=== PATIENT | female | born 1945 | race Caucasian/White ===

== ENCOUNTER → 2017-01-03 | Outpatient (CLI) | payer MEDICARE, BC ==
[~2017-01-03] MED LIST: ALPRAZOLAM0.25 MG PO; AMLOPIDINE PO; AMOXICILLIN 50500 MG PO; ATENOLOL50 MG PO; BETAPACE 80MG80 MG PO; BIAXIN PO; CALCIUM 600-D 61 TAB PO; CALCIUM200 MG PO; CALCIUM600 M2 PO; CARAFATE 1GM1 G PO; CARDIZEM120 MG PO; CEFTIN500 MG PO; CENTRUM SILVER1 TA1 PO; CEPHALEXIN500 M1 PO; CORDARONE200 MG/TAB PO; COUMADIN 22.5 MG/TAB PO; COUMADIN 5MG5 MG/TAB PO; COZAAR 25MG25 MG/TAB PO; DOXYCYCLINE 10100 MG PO; FISH OIL CONC1000 MG PO; LOVENOX; LOVENOX 100100 MG/ML SQ; MAGNESIUM100 MG PO; METOPROLOL SUCC50 M2 PO; METOPROLOL25 MG PO; METOPROLOL50 MG PO; MULTAQ PO; MULTIPLE VITAMI1 CAP PO; NORVASC 5MG5 MG/TAB PO; OMEGA PO; OMEGA-3 FISH1000 MG PO; PACERONE200 MG PO; PREVACID 30MG30 MG PO; PRILOSEC 20MG20 MG PO; PROBIOTIC PO; RHYTHMOL PO; SYNTHROID0.05 MG/TA PO; TIKOSYN0.25 MG PO; TIROSINT50 MCG PO; TOPROL XL50 MG PO; VITAMIN C500 MG PO; XANAX .25M0.25 MG/TA PO; [UNRECOGNIZED DRUG - OTHER] PO; pain medication
== END ==
LOC: MC.RAD 12-27 08:00
DX: N63 Unspecified lump in breast (principal)

== ENCOUNTER → 2017-03-23 | Outpatient (CLI) | payer MEDICARE, BC | LOC: COL.PUL 03-16 08:00 | DX: R06.09 Other forms of dyspnea (principal); Z79.899 Other long term (current) drug therapy ==

== ENCOUNTER → 2017-04-25 | Outpatient (CLI) | payer MEDICARE, BC | LOC: MC.RAD 09:37 | DX: Z12.31 Encounter for screening mammogram for malignant neoplasm of breast (principal) ==

== ENCOUNTER 2017-05-27 12:41 | Emergency (ER) | payer MEDICARE, BC ==
[2008-08-26 18:18] VITALS: BP 142/89
[~2017-05-27] VITALS: Ht 162.6 cm; Wt 120.5 kg
[~2017-05-27 12:41] MED LIST changes: -DOXYCYCLINE 10100 MG PO
[2017-05-27 12:44] VITALS: BP 178/91; PULSE 66; TEMP 97.9
[2017-05-27] MEDS ORDERED: CEPHALEXIN500 M1 PO (13:41)
[2017-05-27] MEDS ORDERED: DOXYCYCLINE 10100 MG PO (13:41)
== END 2017-05-27 14:15 | disposition home or self-care (01) ==
LOC: COL.ER 12:41
DX: L02.416 Cutaneous abscess of left lower limb (principal); J45.909 Unspecified asthma, uncomplicated; I82.401 Acute embolism and thrombosis of unspecified deep veins of right lower extremity; I10 Essential (primary) hypertension; E78.5 Hyperlipidemia, unspecified; Z79.01 Long term (current) use of anticoagulants; Z90.710 Acquired absence of both cervix and uterus; Z90.49 Acquired absence of other specified parts of digestive tract

== ENCOUNTER 2018-04-13 19:26 | Emergency (ER) | payer MEDICARE, BC ==
[2008-08-26 18:18] VITALS: BP 142/89
[~2018-04-13] VITALS: Ht 160 cm; Wt 108.2 kg
[~2018-04-13 19:26] MED LIST changes: -COZAAR 25MG25 MG/TAB PO; +COZAAR 50MG50 MG/TAB PO; +DOXYCYCLINE 10100 MG PO; -SYNTHROID0.05 MG/TA PO; +SYNTHROID0.075 MG/T PO
[2018-04-13 19:33] VITALS: TEMP 98.3
[2018-04-13] MEDS ORDERED: LOPRESSOR 225 MG/TAB PO (20:01)
[2018-04-13] MEDS ORDERED: VISION VITAMINS1 TA1 PO (20:02)
[2018-04-13 20:22] LABS: BASO # 0.1 (0.0-0.2); BASO % 0.9 % (0.0-2.0); EOS # 0.4 (0.0-0.7); EOS % 6.5 % (0-4.0); GRAN # 2.7 (1.4-6.5); GRAN % 48.2 % (42.2-75.2); HEMATOCRIT 40.1 % (37.0-47.0); HEMOGLOBIN 13.2 g/dl (12.5-16.0); LYMPH # 1.8 (1.2-3.4); LYMPH % 33.2 % (20.0-51.0); MEAN CELL VOLUME 96 fl (80.0-100.0); MEAN CORPUSCULAR HEMOGLOBIN 32 pg (27.0-31.0); MEAN CORPUSCULAR HGB CONC 33 g/dl (33.0-37.0); MEAN PLATELET VOLUME 10.1 fl (7.4-10.4); MONO # 0.6 (0.1-0.6); PLATELET COUNT 158 K/mm3 (130-400); RED BLOOD COUNT 4.16 M/mm3 (4.10-5.30); REDCELL DISTRIBUTION WIDTH-CV 13.2 % (11.5-14.5)
[2018-04-13 20:47] LABS: INR 1.3 (0.8-3.0); PROTHROMBIN TIME 14.3 SECONDS (9.7-12.8)
[2018-04-13 21:28] VITALS: BP 113/60
[2018-04-13 23:13] VITALS: PULSE 78
== END 2018-04-13 23:14 | disposition home or self-care (01) ==
LOC: COL.ER 19:26
PROVIDERS: Emergency Medicine
DX: I80.9 Phlebitis and thrombophlebitis of unspecified site (principal); I48.91 Unspecified atrial fibrillation; Z95.0 Presence of cardiac pacemaker; Z79.01 Long term (current) use of anticoagulants

== ENCOUNTER → 2018-05-01 | Outpatient (CLI) | payer MEDICARE, BC ==
[~2018-05-01] MED LIST changes: +LOPRESSOR 225 MG/TAB PO; +VISION VITAMINS1 TA1 PO
== END ==
LOC: MC.RAD 10:40
DX: Z12.31 Encounter for screening mammogram for malignant neoplasm of breast (principal)

== ENCOUNTER → 2019-02-07 | Outpatient (CLI) | payer MEDICARE, BC | LOC: ZCOL.LAB 15:00 → COL.LAB 15:00 | DX: Z01.812 Encounter for preprocedural laboratory examination (principal); Z86.14 Personal history of Methicillin resistant Staphylococcus aureus infection ==

== ENCOUNTER 2019-04-10 14:22 | Inpatient (IN) | payer MEDICARE, BC ==
[~2019-04-10] VITALS: Ht 158.8 cm; Wt 104.2 kg
[2019-06-20] VITALS (9 sets, daily range): BP systolic 106–137; BP diastolic 48–79; PULSE 62–77; TEMP 97–98.1
--- NOTE | 2019-06-20 16:05 | NUR ---
PT TO ROOM 330 PER BED WITH REPORT FROM [facility] @ 0867. PT IS A/O X3, LUNGS CLEAR. DRESSING TO LEFT KNEE CDI WITH AQUACEL OVER INCISION. SCDS BILATERALLY. CRYOCUFF TO LEFT KNEE IV TO PUMP PER ORDERS. PT DENIES PAIN AT THIS TIME.
[2019-06-21 04:30] VITALS: BP 99/50; PULSE 71; TEMP 98
[2019-06-21 07:07] LABS: HEMOGLOBIN 10.8 g/dl (12.5-16.0)
[2019-06-21 07:08] LABS: HEMATOCRIT 33.4 % (37.0-47.0)
--- NOTE | 2019-06-21 08:00 | NUR ---
PATIENT IS A&O. VSS. RATES PAIN IN LLE AT 1-2 ON PAIN SCALE. GAVE PRN ROXICODONE, ONE TAB BEFORE AM THERAPY PER PATIENT REQUEST. LTK DRESSING IS CD&I WITH ICE PACK INPLACE. TEDS & SCD'S TO BLE. POSITIVE PEDAL PULSES TO BLE. EASON TO DD. HEAD TO TOE ASSESSMENT WNL. AM MEDS GIVEN. NO OTHER NEEDS.
--- NOTE | 2019-06-21 08:44 | NUR ---
CROWN IRONER OPERATOR student met with the patient to discuss a discharge plan. The patient lives in [place] with her , Mukesh. The patient has a walker and reports independence with ADLs. The patient's PCP is Dr. Cohen and patient receives medications from [facility] with no difficulties. The patient does not have advanced directives in the EMR but reports they are completed and designate her , Mukesh. The patient plans to return home with outpatient physical therapy at [facility]. The patient's will be providing transportation. There are no additional needs at this time.
[2019-06-21 08:47] VITALS: BP 112/56; PULSE 71; TEMP 98.5
[2019-06-21 09:39] LABS: INR 1.2 (0.8-3.0); PROTHROMBIN TIME 14.3 SECONDS (9.7-12.8)
--- NOTE | 2019-06-21 10:37 | NUR ---
Initial visit; Patient and family thanked Traffic Engineering Director for looking in on Sana and offering encouragement and prayer.
[2019-06-21 12:20] VITALS: BP 138/71; PULSE 66; TEMP 98
[2019-06-21 16:02] VITALS: BP 106/52; PULSE 64; TEMP 98.4
[2019-06-21 20:00] VITALS: BP 115/60; PULSE 67; TEMP 98
[2019-06-21 23:59] VITALS: BP 90/40; PULSE 72; TEMP 98.5
--- NOTE | 2019-06-22 02:23 | NUR ---
Patient resting well tonight. Requested one oxycodone at bedtime. This was administered and patient denies any pain. Up with assist to the bathroom. States she feels stiff after lying down for a period of time. Will continue to monitor.
[2019-06-22 04:00] VITALS: BP 107/53; PULSE 69; TEMP 98
--- NOTE | 2019-06-22 06:24 | NUR ---
Dressing changed to left knee. Moderate amount of drainage with large clot present. Bruising to middle of incision. No warmth or redness noted. Site cleansed and new aquacel applied. Will continue to monitor.
[2019-06-22 06:50] LABS: INR 1.8 (0.8-3.0); PROTHROMBIN TIME 20.8 SECONDS (9.7-12.8)
[2019-06-22 07:57] VITALS: BP 120/61; PULSE 69; TEMP 98.3
[2019-06-22] MEDS ORDERED: COUMADIN 5MG5 MG/TAB PO (08:21)
[2019-06-22] MEDS ORDERED: NORCO 325 MG-7.1 TAB PO (08:22)
[2019-06-22] MEDS ORDERED: ULTRAM 50MG TAB50 MG PO (08:23)
[2019-06-22 13:01] VITALS: BP 115/75; PULSE 104; TEMP 97.6
== END 2019-06-22 14:15 | disposition home or self-care (01) | DRG 470 ==
LOC: JCC 06-20 09:04
PROVIDERS: ADMIT Orthopaedic Surgery
PROC: 0SRD0J9 Replacement of Left Knee Joint with Synthetic Substitute, Cemented, Open Approach (ICD-10-PCS; principal; 2019-06-20 12:45)
DX: M17.12 Unilateral primary osteoarthritis, left knee (principal); Z68.41 Body mass index [BMI] 40.0-44.9, adult; E66.01 Morbid (severe) obesity due to excess calories; I48.91 Unspecified atrial fibrillation; I10 Essential (primary) hypertension; E78.2 Mixed hyperlipidemia; Z88.6 Allergy status to analgesic agent; Z88.5 Allergy status to narcotic agent; Z88.8 Allergy status to other drugs, medicaments and biological substances; Z91.048 Other nonmedicinal substance allergy status; Z86.718 Personal history of other venous thrombosis and embolism; Z79.01 Long term (current) use of anticoagulants; Z95.0 Presence of cardiac pacemaker
CPT/HCPCS: A4314; A9284; C1776; J0690; J1100; J1650; J2250; J2405; J2704; J3010; J7120

== ENCOUNTER → 2019-07-09 | Outpatient (CLI) | payer MEDICARE, BC ==
[~2019-07-09] MED LIST changes: +NORCO 325 MG-7.1 TAB PO; +ULTRAM 50MG TAB50 MG PO
== END ==
LOC: MC.RAD 13:06
DX: Z12.31 Encounter for screening mammogram for malignant neoplasm of breast (principal); Z95.0 Presence of cardiac pacemaker

== ENCOUNTER → 2020-05-26 | Outpatient (CLI) | payer MEDICARE, BC | LOC: COL.LAB 12:22 | DX: Z20.828 Contact with and (suspected) exposure to other viral communicable diseases (principal) ==

== ENCOUNTER → 2020-07-10 | Outpatient (CLI) | payer MEDICARE, BC | LOC: MC.RAD 11:45 | DX: Z12.31 Encounter for screening mammogram for malignant neoplasm of breast (principal) ==

== ENCOUNTER → 2021-07-21 | Outpatient (CLI) | payer MEDICARE, BC | LOC: MC.RAD 11:30 | DX: Z12.31 Encounter for screening mammogram for malignant neoplasm of breast (principal) ==

== ENCOUNTER → 2023-08-22 | Outpatient (CLI) | payer MEDICARE | LOC: MC.RAD 10:00 | DX: Z12.31 Encounter for screening mammogram for malignant neoplasm of breast (principal) ==

== ENCOUNTER 2024-01-13 07:58 | Observation (INO) | payer MEDICARE ==
[~2024-01-13] VITALS: Ht 162.6 cm; Wt 88.4 kg
[2024-01-13] MEDS ORDERED: Albuterol/Ipratropium 3 MG-0.5 MG/3 ML Neb Soln IH ONE ×2 (08:30→09:15)
[2024-01-13 08:42] LABS: BASO % 0.5 % (0.0-2.0); EOS # 0.2 K/mm3 (0.0-0.7); EOS % 3.3 % (0.0-4.0); GRAN # 4.1 K/mm3 (1.4-6.5); GRAN % 66.2 % (42.2-75.2); HEMATOCRIT 42.8 % (37.0-47.0); HEMOGLOBIN 13.7 g/dl (12.5-16.0); MEAN CELL VOLUME 101 fl (80.0-100.0); MEAN CORPUSCULAR HEMOGLOBIN 33 pg (27-31); MEAN CORPUSCULAR HGB CONC 32 g/dl (33.0-37.0); MEAN PLATELET VOLUME 10.3 fl (7.4-10.4); MONO # 0.8 K/mm3 (0.1-0.6); MONO % 12.7 % (1.7-9.3); PLATELET COUNT 142 K/mm3 (130-400); RED BLOOD COUNT 4.22 M/mm3 (4.10-5.30); REDCELL DISTRIBUTION WIDTH-CV 13.8 % (11.5-14.5)
[2024-01-13 09:00] LABS: ALBUMIN 3.5 g/dL (3.4-4.8); BILIRUBIN,TOTAL 0.6 mg/dL (0.2-1.2); CALCIUM 9.3 mg/dL (8.4-10.2); CREATININE, serum 1.01 mg/dL (0.57-1.11); TOTAL PROTEIN 6.5 g/dl (6.2-8.1)
[2024-01-13 09:08] LABS: TROPONIN-I 0.015 ng/mL (0.00-0.033)
[2024-01-13] MEDS ORDERED: SYNTHROID0.088 MG/T PO (10:48)
[2024-01-13] MEDS ORDERED: ELIQUIS 5MG PO (10:49)
[2024-01-13] MEDS ORDERED: LOPRESSOR 550 MG/TAB PO (10:50)
[2024-01-13] MEDS ORDERED: XALATAN EYE DROPS OU (10:50)
[2024-01-13] MEDS ORDERED: CORDARONE200 MG/TAB PO (10:51)
[2024-01-13] MEDS ORDERED: MULTI-VITAMIN W1 TA1 PO (10:53)
[2024-01-13] MEDS ORDERED: LASIX 20MG TABL20 MG PO (10:53)
[2024-01-13] MEDS ORDERED: VITAMIN D31000 I1 PO (10:54)
[2024-01-13] MEDS ORDERED: OMEGA-3 1000 MG1 CAP PO (10:54)
[2024-01-13] MEDS ORDERED: CALCIUM 600600 MG PO (10:55)
[2024-01-13 12:09] VITALS: BP 166/93; PULSE 86; TEMP 97.9
--- NOTE | 2024-01-13 12:30 | NUR ---
PATIENT ADMITTED TO MEDICAL UNIT AT THIS TIME. ORIENTED PATIENT TO ROOM. ADMISSION INTAKE AND ASSESSMENT COMPLETED. MED REC UPDATED. UPDATED PATIENT ON PLAN OF CARE. CALL LIGHT WITHIN REACH. WILL CONTINUE TO MONITOR.
[2024-01-13 13:42] VITALS: BP_SYST 166
[2024-01-13] MEDS ORDERED: Ondansetron 4 MG/2 ML VIAL IV PRN (15:30)
[2024-01-13] MEDS ORDERED: Acetaminophen 325 MG TAB PO PRN (15:30)
[2024-01-13] MEDS ORDERED: Polyethylene Glycol 3350 17 GM PDS PO PRN (15:30)
[2024-01-13] MEDS ORDERED: Docusate Sodium 100 MG CAP PO PRN (15:30)
[2024-01-13 16:17] VITALS: BP 145/80; PULSE 80; TEMP 97.5
[2024-01-13 16:33] VITALS: BP_SYST 145
[2024-01-13] MEDS ORDERED: Furosemide 40 MG/4 ML VIAL IV SCH (16:45)
[2024-01-13] MEDS ORDERED: Albuterol/Ipratropium 3 MG-0.5 MG/3 ML Neb Soln IH SCH (16:45)
[2024-01-13 19:32] VITALS: BP 147/95; PULSE 77; TEMP 98.3
[2024-01-13] MEDS ORDERED: ASPIRIN 81M81 MG/TA2 PO (20:26)
[2024-01-13 20:30] VITALS: BP_SYST 147
--- NOTE | 2024-01-13 20:30 | NUR ---
Initial shift assessment done- denies pain, states does not feel SOB tonight,, on RA, Lung sounds with expiratory wheezes, just had a respiratory treatment, has lower extremity edema but pt states it is much better than yesterday-- states has been going to the bathroom often since Lasix given around 5pm, did give a HS snack tonight- no other requests.
[2024-01-13] MEDS ORDERED: Calcium Carbonate 500 MG TAB PO SCH (21:00)
[2024-01-13] MEDS ORDERED: Apixaban 5 MG TAB PO SCH (21:00)
[2024-01-13] MEDS ORDERED: Metoprolol Tartrate 50 MG TAB PO SCH (21:00)
[2024-01-13] MEDS ORDERED: Latanoprost 0.005% Ophth Soln 2.5 ML BOTTLE OP SCH (21:00)
[2024-01-14] VITALS (7 sets, daily range): BP systolic 128–148; BP diastolic 73–84; PULSE 71–86; TEMP 97.5–98.3
--- NOTE | 2024-01-14 05:36 | NUR ---
Has been sleeping for a couple hours- VSS, did give pt some Tylenol around midnight for some right shoulder pain, Has been getting up to bathroom to void often-- did instruct that we should measure the urine-- hat in toilet to start measuring urine output.
[2024-01-14 06:58] LABS: BASO % 0.9 % (0.0-2.0); EOS # 0.2 K/mm3 (0.0-0.7); EOS % 5.9 % (0.0-4.0); GRAN # 1.5 K/mm3 (1.4-6.5); GRAN % 45.1 % (42.2-75.2); HEMATOCRIT 39.4 % (37.0-47.0); HEMOGLOBIN 13.1 g/dl (12.5-16.0); LYMPH % 29.9 % (20.0-51.0); MEAN CELL VOLUME 97 fl (80.0-100.0); MEAN CORPUSCULAR HEMOGLOBIN 32 pg (27-31); MEAN CORPUSCULAR HGB CONC 33 g/dl (33.0-37.0); MEAN PLATELET VOLUME 10.7 fl (7.4-10.4); MONO # 0.6 K/mm3 (0.1-0.6); MONO % 17.6 % (1.7-9.3); PLATELET COUNT 130 K/mm3 (130-400); RED BLOOD COUNT 4.05 M/mm3 (4.10-5.30); REDCELL DISTRIBUTION WIDTH-CV 13.5 % (11.5-14.5)
[2024-01-14 07:16] LABS: CALCIUM 9.5 mg/dL (8.4-10.2); CREATININE, serum 0.88 mg/dL (0.57-1.11); POTASSIUM 3.7 mEq/L (3.5-4.5)
[2024-01-14] MEDS ORDERED: Ascorbic Acid 500 MG TAB PO SCH (09:00)
[2024-01-14] MEDS ORDERED: Cholecalciferol (Vit D3) 1000 Units TAB PO SCH (09:00)
[2024-01-14] MEDS ORDERED: Amiodarone 200 MG TAB PO SCH (09:00)
--- NOTE | 2024-01-14 09:24 | NUR ---
SW met with patient to complete intake and discuss discharge planning. Patient was alert and sitting up in her bed. Patient confirmed that she resides in [place] with her (Mukesh Cantrell [phone]) Patient shared that her PCP is Dr. Cohen and pharmacy of choice is [facility]. Patient reports that she does not utilize any DMEs and independent with ADLs. 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 Discharge plan: Home with (pending any medical recommendations)
--- NOTE | 2024-01-14 09:50 | NUR ---
Patient sitting up in bench, alert and oriented x 4, talking to her . Denies any pain or SOB. Awaiting for an EXOX and be discharged. Assessment completed, meds given. No further needs at this time. Call light within reach.
[2024-01-14] MEDS ORDERED: LASIX 20MG TABL20 MG PO (10:50)
[2024-01-14] MEDS ORDERED: PROAIR HFA0.09 MG/AC IH (10:51)
--- NOTE | 2024-01-14 11:40 | NUR ---
Data: Patient accepted Seat Trimmer visit offered during Seat Trimmer rounds. Patient was dressed and hoping to discharge soon. Visit ended when both the RN and Patient's arrived at room. Assessment: Patient enjoyed having someone to help pass the time while she waited for a walking test and discharge. Plan of Care: Seat Trimmer provided supportive listening and ministry of presence while Patient reviewed her life. Patient thanked Seat Trimmer for visit. Chaplains will remain available as needed/requested while Patient is admitted to this hospital.
--- NOTE | 2024-01-14 12:13 | NUR ---
Patient was provided with discharge information, all questons answered. IV access discontinued.
== END 2024-01-14 12:00 | disposition home or self-care (01) ==
LOC: COL.ER 07:58 → MEDICAL 10:32
PROVIDERS: Emergency Medicine; Physician Assistant; ADMIT Hospitalist
DX: I11.0 Hypertensive heart disease with heart failure (principal); I50.31 Acute diastolic (congestive) heart failure; I08.1 Rheumatic disorders of both mitral and tricuspid valves; J96.01 Acute respiratory failure with hypoxia; I48.91 Unspecified atrial fibrillation; E78.5 Hyperlipidemia, unspecified; K21.9 Gastro-esophageal reflux disease without esophagitis; K63.5 Polyp of colon; E03.9 Hypothyroidism, unspecified; J40 Bronchitis, not specified as acute or chronic; Z79.01 Long term (current) use of anticoagulants; Z95.0 Presence of cardiac pacemaker; Z86.718 Personal history of other venous thrombosis and embolism; Z79.899 Other long term (current) drug therapy
CPT/HCPCS: G0378; J1940

== ENCOUNTER → 2024-06-13 | Outpatient (CLI) | payer MEDICARE ==
[~2024-06-13] MED LIST changes: +ASPIRIN 81M81 MG/TA2 PO; +CALCIUM 600600 MG PO; +ELIQUIS 5MG PO; +LASIX 20MG TABL20 MG PO; +LOPRESSOR 550 MG/TAB PO; +MULTI-VITAMIN W1 TA1 PO; +OMEGA-3 1000 MG1 CAP PO; +PROAIR HFA0.09 MG/AC IH; +SYNTHROID0.088 MG/T PO; +VITAMIN D31000 I1 PO; +XALATAN EYE DROPS OU
== END ==
LOC: COL.VAS 10:39
DX: I08.3 Combined rheumatic disorders of mitral, aortic and tricuspid valves (principal); J90 Pleural effusion, not elsewhere classified; Z98.890 Other specified postprocedural states; Z85.818 Personal history of malignant neoplasm of other sites of lip, oral cavity, and pharynx; Z95.2 Presence of prosthetic heart valve